=== PATIENT | female | born 1965 | race Caucasian/White ===

== ENCOUNTER → 2017-04-05 | Outpatient (CLI) | payer OTHER | LOC: CIMAGING 09:15 | DX: N83.02 Follicular cyst of left ovary (principal); N83.01 Follicular cyst of right ovary; N92.6 Irregular menstruation, unspecified; N94.89 Other specified conditions associated with female genital organs and menstrual cycle; D25.1 Intramural leiomyoma of uterus | CPT/HCPCS: 76856-PO ==

== ENCOUNTER 2017-06-12 15:18 | Emergency (ER) | payer OTHER ==
[2017-06-12 15:28] VITALS: RESP 16
[2017-06-12] MEDS ORDERED: fentaNYL 100 MCG/2 ML INJ IVP ONE (15:45)
[2017-06-12] MEDS ORDERED: NS 1,000 ML IV ONE ×2 (15:45→18:29)
--- NOTE | 2017-06-12 15:53 | EDPHY ---
H & P Time Seen by Provider: 06/12/17 15:27 HPI/ROS: CHIEF COMPLAINT: Abdominal pain HISTORY OF PRESENT ILLNESS: This is a 52-year-old female who states that at 6 o 'clock in the morning 2 days ago she woke with left paramedian pain the mid quadrant. Pain has been persistent since that time. Food seems to make it better. She went a low-grade fever yesterday and again this morning. T-max was 100 degrees. No nausea. No vomiting. No diarrhea. No bloating. Today the pain seemed to worsen and patient reports she felt better if she is doubled over. No similar symptoms in the past. No urinary complaints. No hematuria, dysuria, or frequency. Patient's past surgical history includes right ovarian cyst removal 18 years ago. REVIEW OF SYSTEMS: Aside from elements discussed in the HPI, a comprehensive 10-point review of systems was reviewed and is negative. PAST MEDICAL HISTORY: Bipolar. 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 SOCIAL HISTORY: Nonsmoker, no alcohol use. VITAL SIGNS Reviewed by me. GENERAL: Well-developed, well-nourished, resting comfortably in no respiratory distress. HEENT: Atraumatic. Eyes: No icterus, no injection. Mouth: moist mucous membranes. No erythema or lesions. Neck: supple with no adenopathy. LUNGS: Clear to auscultation bilaterally, no wheezes, rhonchi or rales. CARDIAC: Regular rate and rhythm, no rubs, murmurs or gallops. ABDOMEN: Soft, a well described area of tenderness just inferior and left lateral of the umbilicus. Tenderness to deep palpation in this area. No rebound or guarding. No distension. Bowel sounds are normal. BACK: No CVA tenderness. EXTREMITIES: No trauma. No edema. Range of motion is normal throughout. NEURO: Alert and oriented, grossly nonfocal. SKIN: Warm and dry, no rash. PSYCHIATRIC: Normal mentation, no agitation. Smoking Status: Never smoked Constitutional: Initial Vital Signs Temperature (C) 37.2 C 06/12/17 15:22 Heart Rate 73 06/12/17 15:22 Respiratory Rate 16 06/12/17 15:22 Blood Pressure 121/67 H 06/12/17 15:22 O2 Sat (%) 95 06/12/17 15:22 O2 Delivery Mode Room Air Allergies/Adverse Reactions: No Known Allergies Allergy (Unverified 06/12/17 15:28) Home Medications: Medication Instructions Recorded Cephalexin [Keflex] 500 mg PO TID #21 cap 06/12/17 Clonazepam 06/12/17 Fluconazole [Diflucan (*)] 150 mg PO ONCE #1 tab 06/12/17 Hydrocodone/APAP 5/325 [[place] 1 tab PO Q6H PRN #10 tab 06/12/17 5/325 (RX)] L-Thyroxine 06/12/17 Latuda 06/12/17 Relive Vitamin 06/12/17 Sertraline HCl 06/12/17 Trileptal 06/12/17 Medical Decision Making - Diagnostics Imaging Results: Imaging Impressions Abdomen CT 06/12/17 16:24 Impression: 1. Findings suspicious for mild pyelonephritis involving the lower pole left kidney adjacent to the renal pelvis. 2. No CT evidence of appendicitis, abscess or bowel obstruction. Findings discussed with Elvia Nelson MD at 17:36 hour, 06/12/2017. ED Course/Re-evaluation: 52-year-old female with low-grade fever and left. Median abdominal pain. IV established. Patient received a L of normal saline as well as fentanyl for her discomfort. Creatinine is 1.1. Patient received Toradol and had CT scan with IV contrast ordered. CT demonstrates findings concerning for pyelonephritis. Patient was able to provide a urine sample. She has a 15-25 white cells per high-power field with 1+ leukocyte esterase, and 2+ bacteria. Urine culture was ordered. Patient received ceftriaxone 1 g IV. She was discharged with a prescription for Keflex 500 mg by mouth times a day for 7 days. She understands reasons to return to the emergency department. Differential Diagnosis: Differential diagnosis of the patient's presenting complaint was considered including but not limited to colitis, diverticulitis, diverticular abscess, incarcerated internal hernia, bowel obstruction, urinary tract infection, pyelonephritis. - Data Points Laboratory Results: Laboratory Results 06/12/17 14:55 06/12/17 14:55 06/12/17 06/12/17 06/12/17 17:15 14:55 14:55 WBC RBC Hgb Hct MCV MCH MCHC RDW Plt Count MPV Neut % (Auto) Lymph % (Auto) [place] % (Auto) Eos % (Auto) Baso % (Auto) Nucleat RBC Rel Count Absolute Neuts (auto) Absolute Lymphs (auto) Absolute Monos (auto) Absolute Eos (auto) Absolute Basos (auto) Absolute Nucleated RBC Immature Gran % Immature Gran # Sodium 141 mEq/L mEq/L (135-145) Potassium 3.7 mEq/L mEq/L (3.5-5.2) Chloride 107 mEq/L mEq/L (97-110) Carbon Dioxide 22 mEq/l mEq/l (22-31) Anion Gap 12 mEq/L mEq/L (8-16) BUN 17 mg/dL mg/dL (7-23) Creatinine 1.1 mg/dL H mg/dL (0.6-1.0) Estimated GFR 52 Glucose 90 mg/dL mg/dL (70-100) Calcium 9.1 mg/dL mg/dL (8.5-10.4) Total Bilirubin 0.3 mg/dL mg/dL (0.1-1.4) Conjugated Bilirubin 0.2 mg/dL mg/dL (0.0-0.5) Unconjugated Bilirubin 0.1 mg/dL mg/dL (0.0-1.1) AST 20 IU/L IU/L (14-46) ALT 29 IU/L IU/L (9-52) Alkaline Phosphatase 62 IU/L IU/L (38-126) Total Protein 6.6 g/dL g/dL (6.3-8.2) Albumin 3.7 g/dL g/dL (3.5-5.0) Lipase 160 IU/L IU/L (23-300) Beta HCG, Qual NEGATIVE Urine Color YELLOW Urine Appearance CLEAR Urine pH 5.5 (5.0-7.5) Ur Specific [place] <= 1.005 (1.002-1.030) Urine Protein NEGATIVE (NEGATIVE) Urine Ketones NEGATIVE (NEGATIVE) Urine Blood NEGATIVE (NEGATIVE) Urine Nitrate NEGATIVE (NEGATIVE) Urine Bilirubin NEGATIVE (NEGATIVE) Urine Urobilinogen 0.2 EU EU (0.2-1.0) Ur Leukocyte Esterase 1+ H (NEGATIVE) Urine RBC 0-1 /hpf /hpf (0-3) Urine WBC 15-25 /hpf H /hpf (0-3) Ur Epithelial Cells 1+ /lpf /lpf (NONE-1+) Urine Bacteria 2+ /hpf H /hpf (NONE SEEN) Urine Glucose NEGATIVE (NEGATIVE) 06/12/17 14:55 WBC 5.66 10^3/uL 10^3/uL (3.80-9.50) RBC 3.90 10^6/uL L 10^6/uL (4.18-5.33) Hgb 12.4 g/dL L g/dL (12.6-16.3) Hct 35.5 % L % (38.0-47.0) MCV 91.0 fL fL (81.5-99.8) MCH 31.8 pg pg (27.9-34.1) MCHC 34.9 g/dL g/dL (32.4-36.7) RDW 11.9 % % (11.5-15.2) Plt Count 137 10^3/uL L 10^3/uL (150-400) MPV 10.4 fL fL (8.7-11.7) Neut % (Auto) 65.8 % % (39.3-74.2) Lymph % (Auto) 23.9 % % (15.0-45.0) [place] % (Auto) 8.3 % % (4.5-13.0) Eos % (Auto) 1.2 % % (0.6-7.6) Baso % (Auto) 0.4 % % (0.3-1.7) Nucleat RBC Rel Count 0.0 % % (0.0-0.2) Absolute Neuts (auto) 3.73 10^3/uL 10^3/uL (1.70-6.50) Absolute Lymphs (auto) 1.35 10^3/uL 10^3/uL (1.00-3.00) Absolute Monos (auto) 0.47 10^3/uL 10^3/uL (0.30-0.80) Absolute Eos (auto) 0.07 10^3/uL 10^3/uL (0.03-0.40) Absolute Basos (auto) 0.02 10^3/uL 10^3/uL (0.02-0.10) Absolute Nucleated RBC 0.00 10^3/uL 10^3/uL (0-0.01) Immature Gran % 0.4 % % (0.0-1.1) Immature Gran # 0.02 10^3/uL 10^3/uL (0.00-0.10) Sodium Potassium Chloride Carbon Dioxide Anion Gap BUN Creatinine Estimated GFR Glucose Calcium Total Bilirubin Conjugated Bilirubin Unconjugated Bilirubin AST ALT Alkaline Phosphatase Total Protein Albumin Lipase Beta HCG, Qual Urine Color Urine Appearance Urine pH Ur Specific [place] Urine Protein Urine Ketones Urine Blood Urine Nitrate Urine Bilirubin Urine Urobilinogen Ur Leukocyte Esterase Urine RBC Urine WBC Ur Epithelial Cells Urine Bacteria Urine Glucose Medications Given: Discontinued Medications Cephalexin (Keflex 500 Mg Prepack#4) 1 btl TAKEHOME EDNOW ONE PRN Reason: Protocol Stop: 06/12/17 17:53 Last Admin: 06/12/17 18:31 Dose: 1 btl Fentanyl (Sublimaze) 50 mcg IVP EDNOW ONE Stop: 06/12/17 15:46 Last Admin: 06/12/17 16:09 Dose: 50 mcg Sodium Chloride (Ns) 1,000 mls @ 0 mls/hr IV EDNOW ONE; Wide Open PRN Reason: Protocol Stop: 06/12/17 15:46 Last Admin: 06/12/17 16:11 Dose: 1,000 mls Ceftriaxone Sodium/Dextrose (Rocephin 1 Gm (Premix)) 50 mls @ 100 mls/hr IV EDNOW ONE PRN Reason: Protocol Stop: 06/12/17 18:11 Last Admin: 06/12/17 18:01 Dose: 50 mls Sodium Chloride (Ns) 1,000 mls @ 0 mls/hr IV ONCE ONE PRN Reason: Wide Open Stop: 06/12/17 18:30 Last Admin: 06/12/17 18:00 Dose: 1,000 mls Ketorolac Tromethamine (Toradol) 15 mg IVP EDNOW ONE Stop: 06/12/17 16:24 Last Admin: 06/12/17 16:32 Dose: 15 mg Departure - Departure Disposition: Home, Routine, Self-Care Clinical Impression: Acute pyelonephritis, Abdominal pain Condition: Good Instructions: Urinary Tract Infection in Women (ED), Kidney Infection (ED) Additional Instructions: Please take antibiotics as directed. Keflex 500 mg by mouth 3 times a day. You should take her 1st dose of Keflex tomorrow morning. Please drink plenty of fluids and get plenty of rest. Please use Tylenol as needed for mild discomfort. You may take hydrocodone as needed for more severe discomfort. Urine has been sent for culture. Culture results will be available in 24-48 hours. We will contact you if you need to have a change in your medication. Return to the emergency department or seek care urgently if your symptoms are worsening despite the above measures, if you have worsening pain, bloating, high fevers, vomiting, or other concerns. If you develop a yeast infection, you been given a prescription for Diflucan. You may use this as needed x1 after antibiotics are finished. Referrals: Robert Bishop DO [Primary Care Provider] - As per Instructions Prescriptions: Cephalexin [Keflex] 500 mg PO TID #21 cap Fluconazole [Diflucan (*)] 150 mg PO ONCE #1 tab Hydrocodone/APAP 5/325 [[place] 5/325 (RX)] 1 tab PO Q6H PRN #10 tab PRN Reason: Pain
[2017-06-12 16:05] LABS: PLATELET COUNT 137 10^3/uL (150-400)
[2017-06-12] MEDS ORDERED: KETOROLAC 15 MG/1 ML SDV IVP ONE (16:23)
[2017-06-12] MEDS ORDERED: IOPAMIDOL (ISOVUE-300) 100 ML BTL ONE (16:38)
[2017-06-12] MEDS ORDERED: CEPHALEXIN 500MG PREPACK#4 BTL TAKEHOME ONE (17:52)
[2017-06-12 18:05] VITALS: BP 115/59; PULSE 57; O2SAT 94
[2017-06-12 19:08] VITALS: TEMP 98.7
== END 2017-06-12 19:07 | disposition home or self-care (01) ==
LOC: CED 15:18
DX: N10 Acute pyelonephritis (principal); B96.20 Unspecified Escherichia coli [E. coli] as the cause of diseases classified elsewhere; E86.9 Volume depletion, unspecified
CPT/HCPCS: 74177-PO; 80048-PO; 80076-PO; 81003-PO; 81015-PO; 83690-PO; 84703-PO; 85025-PO; 96365; J0696; J1885; J3010; Q9967

== ENCOUNTER → 2018-08-25 | Outpatient (CLI) | payer OTHER | LOC: CIMAGING 13:35 ==